=== PATIENT | male | born 1940 | race Caucasian/White ===

== ENCOUNTER → 2016-11-02 | Outpatient (CLI) | payer OTHER ==
[2015-12-06 10:13] VITALS: BP 132/77
[~2016-11-02] MED LIST: ASPI81TA2 PO; LISI1TAB5 PO
[2016-11-02 08:35] LABS: ALBUMIN 3.5 g/dL (3.4-5.0); ALBUMIN/GLOBULIN RATIO 0.9 (1.0-1.7); CALCIUM 8.9 mg/dL (8.5-10.1); CREATININE 1.2 mg/dL (0.7-1.3); GFR 58.6; POTASSIUM 4.5 mmol/L (3.5-5.1); TOTAL BILIRUBIN 0.9 mg/dL (0.2-1.0); TOTAL PROTEIN 7.3 g/dL (6.4-8.2)
== END | disposition home or self-care (01) ==
LOC: LAB 07:52
PROVIDERS: ATTEND Internal Medicine Cardiovascular Disease
DX: E78.00 Pure hypercholesterolemia, unspecified (principal)
CPT/HCPCS: 36415; 80053; 80061

== ENCOUNTER → 2016-12-27 | Outpatient (CLI) | payer OTHER ==
[2015-12-06 10:13] VITALS: BP 132/77
[~2016-12-27] MED LIST changes: +ASPI-630 PO; -ASPI81TA2 PO
[2016-12-27 08:17] LABS: ALBUMIN 3.3 g/dL (3.4-5.0); ALBUMIN/GLOBULIN RATIO 0.9 (1.0-1.7); CALCIUM 8.4 mg/dL (8.5-10.1); CREATININE 1.2 mg/dL (0.7-1.3); GFR 58.6; POTASSIUM 4.3 mmol/L (3.5-5.1)
== END | disposition home or self-care (01) ==
LOC: LAB 07:46
PROVIDERS: ATTEND Nurse Practitioner
DX: E78.5 Hyperlipidemia, unspecified (principal)
CPT/HCPCS: 36415; 80053; 80061

== ENCOUNTER → 2017-12-25 | Outpatient (CLI) | payer OTHER ==
[2015-12-06 10:13] VITALS: BP 132/77
[2017-12-25 08:24] LABS: ALBUMIN 3.3 g/dL (3.4-5.0); ALBUMIN/GLOBULIN RATIO 0.9 (1.0-1.7); CALCIUM 8.5 mg/dL (8.5-10.1); CREATININE 1.3 mg/dL (0.7-1.3); GFR 53.3; POTASSIUM 4.3 mmol/L (3.5-5.1); TOTAL BILIRUBIN 0.9 mg/dL (0.2-1.0); TOTAL PROTEIN 6.8 g/dL (6.4-8.2)
== END | disposition home or self-care (01) ==
LOC: LAB 07:43
PROVIDERS: ATTEND Nurse Practitioner
DX: E78.5 Hyperlipidemia, unspecified (principal)
CPT/HCPCS: 36415; 80053; 80061

== ENCOUNTER → 2018-07-01 | Outpatient (CLI) | payer OTHER ==
[2015-12-06 10:13] VITALS: BP 132/77
[2018-07-01 08:12] LABS: ALBUMIN 3.3 g/dL (3.4-5.0); ALBUMIN/GLOBULIN RATIO 0.9 (1.0-1.7); CALCIUM 8.5 mg/dL (8.5-10.1); CREATININE 1.3 mg/dL (0.7-1.3); GFR 53.3; POTASSIUM 4.6 mmol/L (3.5-5.1); TOTAL BILIRUBIN 0.8 mg/dL (0.2-1.0); TOTAL PROTEIN 6.9 g/dL (6.4-8.2)
== END | disposition home or self-care (01) ==
LOC: LAB 07:36
PROVIDERS: ATTEND Nurse Practitioner
DX: E78.49 Other hyperlipidemia (principal)
CPT/HCPCS: 36415; 80053; 80061

== ENCOUNTER → 2018-12-16 | Outpatient (CLI) | payer OTHER ==
[2015-12-06 10:13] VITALS: BP 132/77
[2018-12-16 08:11] LABS: ALBUMIN 3.3 g/dL (3.4-5.0); CALCIUM 8.9 mg/dL (8.5-10.1); CREATININE 1.2 mg/dL (0.7-1.3); GFR 58.3; POTASSIUM 4.6 mmol/L (3.5-5.1); TOTAL PROTEIN 6.6 g/dL (6.4-8.2)
== END | disposition home or self-care (01) ==
LOC: LAB 07:40
PROVIDERS: ATTEND Nurse Practitioner
DX: E78.5 Hyperlipidemia, unspecified (principal)
CPT/HCPCS: 36415; 80053; 80061

== ENCOUNTER → 2020-03-09 | Outpatient (CLI) | payer MEDICARE, OTHER ==
[2015-12-06 10:13] VITALS: BP 132/77
[~2020-03-09] MED LIST changes: +LISI1TAB37 PO; -LISI1TAB5 PO
[2020-03-09 08:56] LABS: ALBUMIN 3.2 g/dL (3.4-5.0); ALBUMIN/GLOBULIN RATIO 0.9 (1.0-1.7); CALCIUM 8.3 mg/dL (8.5-10.1); CREATININE 1.4 mg/dL (0.7-1.3); GFR 48.6; POTASSIUM 4.5 mmol/L (3.5-5.1); TOTAL BILIRUBIN 0.9 mg/dL (0.2-1.0); TOTAL PROTEIN 6.7 g/dL (6.4-8.2)
== END ==
LOC: LAB 07:38
PROVIDERS: ATTEND Nurse Practitioner
DX: E78.5 Hyperlipidemia, unspecified (principal)
CPT/HCPCS: 36415; 80053; 80061

== ENCOUNTER 2020-03-31 12:25 | Emergency (ER) | payer MEDICARE ==
[~2020-03-31] VITALS: Ht 182.9 cm; Wt 84.5 kg
[2020-03-31] MEDS ORDERED: IOHEXOL 300 MG/ML 75 ML VIAL. IV ONE (13:15)
[2020-03-31] MEDS ORDERED: IOHEXOL 240 MG/ML 50ML VIAL. PO ONE (13:15)
[2020-03-31] MEDS ORDERED: ONDANSETRON PF 4 MG/2 ML VIAL. ONE (13:16)
[2020-03-31 13:27] LABS: BASO % 1 % (0-3); EOS # 0.1 x10^3/uL (0.0-0.7); EOS % 1 % (0-3); HEMATOCRIT 49.3 % (39.0-53.0); HEMOGLOBIN 16.4 g/dL (13.0-17.5); LYMPH % 11 % (24-48); MEAN CORPUSCULAR HEMOGLOBIN 32 pg (25-35); MEAN CORPUSCULAR HGB CONC 33 g/dL (31-37); MEAN CORPUSCULAR VOLUME 97 fL (79-100); MONO # 0.4 x10^3/uL (0.0-1.1); MONO % 4 % (0-9); NEUT % 84 % (31-73); PLATELET COUNT 287 x10^3/uL (140-400); RED BLOOD COUNT 5.07 x10^6/uL (4.30-5.70); RED CELL DISTRIBUTION WIDTH 14.7 % (11.5-14.5); WHITE BLOOD COUNT 9.6 x10^3/uL (4.0-11.0)
[2020-03-31] MEDS ORDERED: ONDANSETRON PF 4 MG/2 ML VIAL. IVP ONE (13:30)
[2020-03-31 13:37] LABS: CALCIUM 8.6 mg/dL (8.5-10.1); CREATININE 1.6 mg/dL (0.7-1.3); GFR 41.7; POTASSIUM 4.3 mmol/L (3.5-5.1)
[2020-03-31 13:43] LABS: ALBUMIN 2.7 g/dL (3.4-5.0); ALBUMIN/GLOBULIN RATIO 0.7 (1.0-1.7); TOTAL BILIRUBIN 1.2 mg/dL (0.2-1.0); TOTAL PROTEIN 6.4 g/dL (6.4-8.2)
--- NOTE | 2020-03-31 15:20 | PHYS DOC ---
Past History Past Medical History: Hypertension Past Surgical History: No Surgical History Alcohol Use: None Drug Use: None Adult General Chief Complaint Chief Complaint: ABDOMINAL PAIN HPI HPI Patient is a 79-year-old male who presents to the emergency room complaining of epigastric abdominal pain. Patient's pain started a couple days ago and he has had 3 episodes of vomiting with it. He states that it feels like a sharp aching pain. He states that it has been intermittent but does not seem to be going away. He denies any chest pain, shortness of breath, diarrhea, constipation, prior surgeries to the abdomen. He has not had any known fevers. He continues to feel hungry. Review of Systems Review of Systems General: Denies fever, chills, sweats, fatigue Eyes: Denies drainage, blurred vision, eye redness HENT: Denies rhinorrhea, sore throat, earache Respiratory: Denies cough, shortness of breath, wheezing Cardiac: Denies edema, palpitations, chest pain GI: Reports abdominal pain, Nausea, vomiting MSK: Denies back pain, neck pain Skin: Denies rash, jaundice Neuro: Denies headache, dizziness Psychiatric: Denies SI/HI Current Medications Current Medications Current Medications Medications (Trade) Dose Ordered Sig/Magen Start Time Stop Time Status Last Admin Dose Admin Iohexol (Omnipaque 240 Mg/ml) 50 ml 1X ONCE 03/31/20 13:15 03/31/20 13:16 DC 03/31/20 14:30 50 ML Iohexol (Omnipaque 300 Mg/ml) 75 ml 1X ONCE 03/31/20 13:15 03/31/20 13:16 DC 03/31/20 14:30 60 ML Ondansetron HCl (Zofran) 4 mg STK-MED ONCE 03/31/20 13:16 03/31/20 13:17 DC Allergies Allergies Allergies Coded Allergies Type Severity Reaction Last Updated Verified No Known Drug Allergies 12/06/15 No Physical Exam Physical Exam General: Awake, alert, NAD. Well Nourished, well hydrated. Cooperative HEENT: Atraumatic, EOMI, PERRL, airway patent, moist oral mucosa Neck: Supple, trachea midline Respiratory: CTA bilaterally, normal effort, no wheezing/crackles CV: RRR, no murmur, cap refill <2 GI: Soft, mild distention, epigastric tenderness no masses MSK: No obvious deformities Skin: Warm, dry, intact Neuro: A&O x3, speech NL, sensory and motor grossly intact, no focal deficits Psych: Normal affect, normal mood, not suicidal or homicidal Current Patient Data Vital Signs Vital Signs Date Time Temp Pulse Resp B/P (MAP) Pulse Ox O2 Delivery O2 Flow Rate FiO2 03/31/20 15:03 63 16 101/63 (76) 98 Room Air 03/31/20 12:39 97.8 Lab Results Laboratory Tests Test 03/31/20 13:10 White Blood Count 9.6 x10^3/uL (4.0-11.0) Red Blood Count 5.07 x10^6/uL (4.30-5.70) Hemoglobin 16.4 g/dL (13.0-17.5) Hematocrit 49.3 % (39.0-53.0) Mean Corpuscular Volume 97 fL (79-100) Mean Corpuscular Hemoglobin 32 pg (25-35) Mean Corpuscular Hemoglobin Concent 33 g/dL (31-37) Red Cell Distribution Width 14.7 % (11.5-14.5) H Platelet Count 287 x10^3/uL (140-400) Neutrophils (%) (Auto) 84 % (31-73) H Lymphocytes (%) (Auto) 11 % (24-48) L Monocytes (%) (Auto) 4 % (0-9) Eosinophils (%) (Auto) 1 % (0-3) Basophils (%) (Auto) 1 % (0-3) Neutrophils # (Auto) 8.0 x10^3uL (1.8-7.7) H Lymphocytes # (Auto) 1.0 x10^3/uL (1.0-4.8) Monocytes # (Auto) 0.4 x10^3/uL (0.0-1.1) Eosinophils # (Auto) 0.1 x10^3/uL (0.0-0.7) Basophils # (Auto) 0.0 x10^3/uL (0.0-0.2) Sodium Level 137 mmol/L (136-145) Potassium Level 4.3 mmol/L (3.5-5.1) Chloride Level 101 mmol/L (98-107) Carbon Dioxide Level 25 mmol/L (21-32) Anion Gap 11 (6-14) Blood Urea Nitrogen 14 mg/dL (8-26) Creatinine 1.6 mg/dL (0.7-1.3) H Estimated GFR (Cockcroft-Gault) 41.7 BUN/Creatinine Ratio 9 (6-20) Glucose Level 167 mg/dL (70-99) H Lactic Acid Level 2.7 mmol/L (0.4-2.0) H Calcium Level 8.6 mg/dL (8.5-10.1) Total Bilirubin 1.2 mg/dL (0.2-1.0) H Aspartate Amino Transferase (AST) 23 U/L (15-37) Alanine Aminotransferase (ALT) 14 U/L (16-63) L Alkaline Phosphatase 90 U/L (46-116) Total Protein 6.4 g/dL (6.4-8.2) Albumin 2.7 g/dL (3.4-5.0) L Albumin/Globulin Ratio 0.7 (1.0-1.7) L Lipase 77 U/L (73-393) EKG EKG [] Radiology/Procedures Radiology/Procedures [] Course & Med Decision Making Course & Med Decision Making Pertinent Labs and Imaging studies reviewed. (See chart for details) Patient is a 79 year-old male with a history of hypertension who presents to the Emergency Room complaining of abdominal pain with nausea and vomiting. On exam, patient has abdominal tenderness with focal peritonitis. Due to patients history, age, and exam work up will need to be done to evaluate for intra- abdominal pathology. Work up ordered includes CBC, CMP, lipase, UA, CT abdomen and pelvis. Patient's pain is epigastric and a cardiac evaluation will be needed for atypical pain. Ddx includes gastritis, pancreatitis, cholecystitis, atypical ACS, perforated ulcer, PUD. Work up was reviewed and shows SBO with ascites and transition point. Patient requesting to go to for surgical services. He will be transferred to . Dragon Disclaimer Dragon Disclaimer This electronic medical record was generated, in whole or in part, using a voice recognition dictation system. Departure Departure: Impression: Primary Impression: Small bowel obstruction Additional Impression: Ascites Disposition: XFER SHT-TRM HOSP Condition: STABLE Referrals: DALE BARRERA MD (PCP) Justification of Admission: Justification of Admission: Justification of Admission Dx: Yes Problem Qualifiers MIRANDA MENON MD Mar 31, 2020 15:20
[2020-03-31] MEDS ORDERED: IV NORMAL SALINE 50ML 50 ML ONE (15:48)
[2020-03-31] MEDS ORDERED: PIPERACILLIN/TAZOBACTAM 3.375 GM VIAL IV ONE (15:48)
--- NOTE | 2020-03-31 15:48 | RAD ---
Exam: CT abdomen/pelvis with intravenous contrast Indication: Abdominal pain, nausea and vomiting. Comparison: None Technique: Helical CT imaging performed of the abdomen and pelvis after the intravenous administration of 60 mL Omnipaque 300 intravenous contrast. Sagittal and coronal reformats were obtained. One or more of the following individualized dose reduction techniques were utilized for this examination: 1. Automated exposure control 2. Adjustment of the mA and/or kV according to patient size 3. Use of iterative reconstruction technique. Findings: Lower chest: Nonspecific subpleural opacities in the posterior medial right lower lobe. The heart is normal in size. Liver: The liver is normal in size. No focal lesion. Gallbladder/Biliary Tree: Gallbladder is mildly distended. No cholelithiasis visualized. Bile ducts are normal. Pancreas: Normal. Spleen: Normal. Adrenal Glands: There is a 2.5 cm intermediate density left adrenal nodule. Right adrenal gland is normal. Kidneys/Ureters/Bladder: Kidneys are normal in size and enhance symmetrically. There is right nephrolithiasis but 3 mm. No hydronephrosis. Ureters are normal. Mild diffuse bladder thickening. Reproductive Organs: There are coarse calcifications the prostate gland. Stomach, small bowel, and colon: Stomach is distended with contrast. There is mild diffuse dilation of the small bowel measuring up to 3 cm in diameter. Mild focal narrowing and wall thickening of the terminal ileum (image 66). There is fluid in the cecum and gas and stool in the rest of the colon. A few colonic diverticula are noted. Vasculature: Ectatic infrarenal abdominal aorta measuring up to 2.8 cm.. Moderate calcified aortoiliac atherosclerosis. Lymph Nodes: No lymphadenopathy. Peritoneum and retroperitoneum: Small volume of ascites, greatest in the pelvis. No free air. Bones: No acute osseous abnormality. There is straightening of lumbar lordosis. Moderate degenerative disc disease at L5-S1. Impression: 1. Mild diffuse dilation of the small bowel suspicious for partial small bowel obstruction. Possible transition point in the terminal ileum where there is relative narrowing and mild focal wall thickening. Small volume of ascites. 2. Right nephrolithiasis. 3. 2.5 cm indeterminate left adrenal nodule. This could be further evaluated with CT or MRI renal mass protocol. Electronically signed by: Jeannine Davis MD (03/31/2020 3:45 PM) [id number]
[2020-03-31] MEDS ORDERED: PIPERACILLIN/TAZOBACTAM 3.375 GM in IV NORMAL SALINE 50ML 50 ML IV ONE (16:00)
--- NOTE | 2020-03-31 17:11 | RAD ---
KUB History: Nasogastric tube placement Comparison: CT abdomen pelvis exam this same day Findings: 2 supine AP views of the abdomen are submitted. There is now enteric catheter, tip in the body of the stomach. There is again gas dilated small bowel. There is contrast in the urinary bladder. There are some small right renal calculi. Impression: 1. Tip of the enteric catheter is in the body of the stomach. There is small bowel dilatation as may be seen with small bowel obstruction. 2. There are right renal calculi. Electronically signed by: Brandin Ramsey MD (03/31/2020 5:09 PM) [id number]
[2020-03-31 17:40] VITALS: BP 118/48
[2020-03-31 18:20] LABS: BILIRUBIN,URINE NEG (NEG); CLARITY,URINE CLEAR; COLOR,URINE YELLOW; GLUCOSE,URINE NEG (NEG); NITRITE,URINE NEG (NEG); RBC,URINE 0 /HPF (0-2); WBC,URINE OCC /HPF (0-4)
[2020-03-31 18:21] LABS: BACTERIA,URINE 0 /HPF (0-FEW); HYALINE CASTS, URINE FEW /HPF; SQUAMOUS EPITHELIAL CELL,UR FEW /LPF
== END 2020-03-31 19:07 | disposition short-term general hospital (02) ==
LOC: ER 12:25
DX: K56.609 Unspecified intestinal obstruction, unspecified as to partial versus complete obstruction (principal); R18.8 Other ascites; R11.2 Nausea with vomiting, unspecified; I10 Essential (primary) hypertension
CPT/HCPCS: 36415; 74018; 74177; 80053; 81001; 83605; 83690; 85025; 96365; 96375; 99285; J2405; J2543; Q9966; Q9967

== ENCOUNTER → 2021-03-13 | Outpatient (CLI) | payer MEDICARE ==
[2021-03-13 11:15] LABS: ALBUMIN 3.2 g/dL (3.4-5.0); CALCIUM 8.4 mg/dL (8.5-10.1); CREATININE 1.4 mg/dL (0.7-1.3); GFR 48.5; TOTAL BILIRUBIN 0.7 mg/dL (0.2-1.0); TOTAL PROTEIN 6.3 g/dL (6.4-8.2)
== END ==
LOC: LAB 07:46
PROVIDERS: ATTEND Nurse Practitioner
DX: E78.5 Hyperlipidemia, unspecified (principal)
CPT/HCPCS: 36415; 80053; 80061

== ENCOUNTER 2021-12-10 19:07 | Emergency (ER) | payer MEDICARE ==
[~2021-12-10] VITALS: Ht 182.9 cm; Wt 84.5 kg
--- NOTE | 2021-12-10 19:58 | PHYS DOC ---
Past History Past Medical History: Hypertension Past Surgical History: No Surgical History Alcohol Use: None Drug Use: None General Adult EDM: Chief Complaint: ABDOMINAL PAIN HPI: HPI: Patient is a 81-year-old male coming in for lower abdominal pain. Patient states that it feels like his lower abdomen is "bruised" but denies any injury. Patient states last bowel movement was earlier today. Describes it as normal. Patient states he has some nausea but not vomiting. Has a history of bowel obstruction that required surgical repair. Changes with urination Review of Systems: Review of Systems: All other systems within normal limits except for as noted in the HPI Allergies: Allergies: Allergies Coded Allergies Type Severity Reaction Last Updated Verified No Known Drug Allergies 12/06/15 No Physical Exam: PE: Constitutional: Well developed, well nourished, no acute distress, non-toxic appearance. [] HENT: Normocephalic, atraumatic, bilateral external ears normal, nose normal. [] Eyes: PERRLA, conjunctiva normal, no discharge. [] Neck: No rigidity, supple, no stridor. [] Cardiovascular: Regular rate and rhythm, brisk cap refill [] Lungs & Thorax: Non labored symmetric respirations, no tachypnea or respiratory distress [] Abdomen: Soft, nondistended, bilateral lower abdominal tenderness. Skin: Warm, dry, no erythema, no rash. [] Back: Unremarkable Extremities: No deformities, range of motion grossly intact, no lower extremity edema [] Neurologic: Alert and oriented X 3, no focal deficits noted. [] Psychologic: Affect normal, judgement normal, mood normal. [] EKG: EKG: [] Radiology/Procedures: Radiology/Procedures: [][address] [address] IMAGING REPORT Signed PATIENT: WILLY RYAN ACCOUNT: [id number] : 1940 LOCATION: ER AGE: 81 SEX: M EXAM STATUS: REG ER ORD. PHYSICIAN: SOCORRO KWOK MD REASON: low abd pain PROCEDURE: CT ABDOMEN PELVIS WO CONTRAST CT ABDOMEN+PELVIS WO History: Reason: low abd pain / Spl. Instructions: / History: Technique: Noncontrast examination of the abdomen and pelvis. Coronal and sagittal reconstructions were performed. Exposure: One or more of the following individualized dose reduction techniques were utilized for this examination: 1. Automated exposure control 2. Adjustment of the mA and/or kV according to patient size 3. Use of iterative reconstruction technique. Comparison: March 31, 2020 Findings: Lower chest: No consolidation or pleural effusion. Abdomen and pelvis: The liver, spleen, pancreas and gallbladder are unremarkable noncontrast appearance. No biliary ductal dilatation. Left adrenal adenoma measures 2.5 x 1.7 cm. Unremarkable right adrenal gland. Punctate nonobstructing right intrarenal calculus. No hydronephrosis. No ureteral or urinary bladder calculus. The prostate is mildly enlarged measures 4.7 x 3.6 cm with calcifications. Normal appendix. Distended debris filled stomach. Three anterior abdominal wall hernias containing partial loops of small bowel contributing to severe narrowing. Mild infiltration of the fat adjacent to the hernias. Mildly dilated small bowel within this region. There is mildly dilated fluid-filled loops of small bowel proximal to the hernias. Fecalization of small bowel within the region of the hernias. No pneumatosis. No pneumoperitoneum. No pathologic lymphadenopathy. No ascites. Severe atheromatous plaque throughout the ectatic abdominal aorta and branch vessels. Bones: Lumbar spondylosis most prominent L4-5 and L5-S1. Mild retrolisthesis L3 on L4. Grade 1 anterolisthesis L5 on S1. Impression: 1. Partial small bowel obstruction with several transition points at the level of the anterior abdominal wall hernias. 2. Distended debris filled stomach. 3. Punctate right nonobstructing intrarenal calculus. Electronically signed by: Emil Hair DO (12/10/2021 9:10 PM) [facility] DICTATED AND SIGNED BY: EMIL HAIR DO DATE: 12/10/212099 CC: SOCORRO KWOK MD; DALE BARRERA MD ~ Heart Score: C/O Chest Pain: No Risk Factors: Risk Factors: DM, Current or recent (<one month) smoker, HTN, HLP, family history of CAD, obesity. Risk Scores: Score 0 - 3: 2.5% MACE over next 6 weeks - Discharge Home Score 4 - 6: 20.3% MACE over next 6 weeks - Admit for Clinical Observation Score 7 - 10: 72.7% MACE over next 6 weeks - Early Invasive Strategies Course & Med Decision Making: Course & Med Decision Making NG tube placed. Discussed with patient's primary care provider Dr. Barrera, agrees the patient probably go to [place] due to the multiple transition point seen on CT.Nick and Consult placed to Dr. Roth, admitted to Dr. Alford at [facility] Disclaimer: Krishna Disclaimer: This electronic medical record was generated, in whole or in part, using a voice recognition dictation system. Departure Departure: Impression: Primary Impression: Partial small bowel obstruction Disposition: 02 SHORT TERM HOSPITAL Condition: STABLE Referrals: DALE BARRERA MD (PCP) SOCORRO KWOK MD December 10, 2021 19:58
[2021-12-10 20:20] LABS: BASO % 0 % (0-3); EOS # 0.1 x10^3/uL (0.0-0.7); EOS % 1 % (0-3); HEMATOCRIT 41.6 % (39.0-53.0); HEMOGLOBIN 14.2 g/dL (13.0-17.5); LYMPH # 1.1 x10^3/uL (1.0-4.8); LYMPH % 13 % (24-48); MEAN CORPUSCULAR HEMOGLOBIN 34 pg (25-35); MEAN CORPUSCULAR HGB CONC 34 g/dL (31-37); MEAN CORPUSCULAR VOLUME 99 fL (79-100); MONO # 0.6 x10^3/uL (0.0-1.1); MONO % 8 % (0-9); NEUT # 6.6 x10^3uL (1.8-7.7); NEUT % 78 % (31-73); PLATELET COUNT 195 x10^3/uL (140-400); RED CELL DISTRIBUTION WIDTH 13.7 % (11.5-14.5); WHITE BLOOD COUNT 8.6 x10^3/uL (4.0-11.0)
[2021-12-10 20:28] LABS: CALCIUM 9.4 mg/dL (8.5-10.1); CREATININE 1.5 mg/dL (0.7-1.3); GFR 44.7; POTASSIUM 4.6 mmol/L (3.5-5.1)
[2021-12-10 20:40] LABS: ALBUMIN 3.3 g/dL (3.4-5.0); ALBUMIN/GLOBULIN RATIO 1.1 (1.0-1.7); MAGNESIUM 1.9 mg/dL (1.8-2.4); TOTAL BILIRUBIN 0.8 mg/dL (0.2-1.0); TOTAL PROTEIN 6.3 g/dL (6.4-8.2)
--- NOTE | 2021-12-10 21:12 | RAD ---
CT ABDOMEN+PELVIS WO History: Reason: low abd pain / Spl. Instructions: / History: Technique: Noncontrast examination of the abdomen and pelvis. Coronal and sagittal reconstructions we re performed. Exposure: One or more of the following individualized dose reduction techniques were utilized for thi s examination: 1. Automated exposure control 2. Adjustment of the mA and/or kV according to patient size 3. Use of iterative reconstruction technique. Comparison: March 31, 2020 Findings: Lower chest: No consolidation or pleural effusion. Abdomen and pelvis: The liver, spleen, pancreas and gallbladder are unremarkable noncontrast appearan ce. No biliary ductal dilatation. Left adrenal adenoma measures 2.5 x 1.7 cm. Unremarkable right adre nal gland. Punctate nonobstructing right intrarenal calculus. No hydronephrosis. No ureteral or urinary bladder calculus. The prostate is mildly enlarged measures 4.7 x 3.6 cm with calcifications. Normal appendix. Distended debris filled stomach. Three anterior abdominal wall hernias containing pa rtial loops of small bowel contributing to severe narrowing. Mild infiltration of the fat adjacent to the hernias. Mildly dilated small bowel within this region. There is mildly dilated fluid-filled loo ps of small bowel proximal to the hernias. Fecalization of small bowel within the region of the herni as. No pneumatosis. No pneumoperitoneum. No pathologic lymphadenopathy. No ascites. Severe atheromato us plaque throughout the ectatic abdominal aorta and branch vessels. Bones: Lumbar spondylosis most prominent L4-5 and L5-S1. Mild retrolisthesis L3 on L4. Grade 1 chon listhesis L5 on S1. Impression: 1. Partial small bowel obstruction with several transition points at the level of the anterior abdom inal wall hernias. 2. Distended debris filled stomach. 3. Punctate right nonobstructing intrarenal calculus. Electronically signed by: Emil Hair DO (12/10/2021 9:10 PM) [facility]
--- NOTE | 2021-12-10 23:41 | RAD ---
XR CHEST 1V Clinical Indication: Reason: NG tube insertion / Spl. Instructions: / History: Comparison: None. Findings: Enteric tube tip is in the stomach. Atherosclerotic thoracic aorta. The cardiac size is normal. There is minimal scarring or atelectasis in the bilateral lung bases. Lungs are otherwise clear. There is no pneumothorax. No pleural effusion is appreciated. No acute bone abnormality. IMPRESSION: Enteric tube tip is in the stomach. Electronically signed by: Dean Braden MD (12/10/2021 11:39 PM) [facility]
[2021-12-11 00:49] VITALS: BP 121/52
[2021-12-11 01:41] LABS: INFLUENZA A PATIENT NEGATIVE (NEGATIVE); INFLUENZA B PATIENT NEGATIVE (NEGATIVE)
[2021-12-11 01:45] LABS: BACTERIA,URINE 0 /HPF (0-FEW); CLARITY,URINE CLEAR; COLOR,URINE YELLOW; GLUCOSE,URINE NEG (NEG); NITRITE,URINE NEG (NEG); RBC,URINE 0 /HPF (0-2); UROBILINOGEN,URINE 0.2 mg/dL (0.2 mg/dL); WBC,URINE OCC /HPF (0-4)
== END 2021-12-11 00:55 | disposition short-term general hospital (02) ==
LOC: ER 19:07
DX: K56.600 Partial intestinal obstruction, unspecified as to cause (principal); I10 Essential (primary) hypertension; Z20.822 Contact with and (suspected) exposure to COVID-19
CPT/HCPCS: 36415; 71045; 74176; 80053; 81001; 83605; 83690; 83735; 83880; 84100; 85025; 87428; 93005; 99285; C9803; U0003